=== PATIENT | female | born 1980 | race Two or more races ===

== ENCOUNTER 2020-04-15 10:54 | Emergency (ER) | payer MEDICAID ==
[~2020-04-15] VITALS: Ht 154.9 cm; Wt 86.2 kg
--- NOTE | 2020-04-15 11:14 | NUR ---
CAME FROM HOME C/O ABDOMINAL PAIN X 5 DAYS, "BURNING SENSATION" +NAUSEA, TO ER BED 1, HOOKED TO BP CUFF AND POX, CHANGED TO HOSP GOWN, WARM BLANKET PROVIDED, PATIENT AAO x 4, BREATHING EVEN AND UNLABORED, NOT IN RESPIRATORY DISTRESS. DR BATEMAN AT BEDSIDE FOR EVAL.
[2020-04-15 11:28] LABS: APPEARANCE,URINE Clear (CLEAR); BILIRUBIN,URINE Negative (NEGATIVE); BLOOD, URINE Moderate Ery/uL (NEGATIVE); COLOR,URINE Yellow (YELLOW); KETONES,URINE Negative (NEGATIVE); LEUKOCYTE ESTERASE ,URINE Trace (NEGATIVE); NITRITE, URINE Negative (NEGATIVE); PROTEIN,URINE Negative (NEGATIVE); UGLUCOSE Negative (NEGATIVE); UROBILINOGEN,URINE 0.2 EU/dL (0.2)
[2020-04-15] MEDS ORDERED: PANTOPRAZOLE 40 MG VIAL ONE (11:34)
[2020-04-15] MEDS ORDERED: ONDANSETRON HCL/PF 4 MG/2 ML VIAL ONE (11:34)
[2020-04-15 11:36] LABS: BACTERIA,URINE Few /HPF (None Seen)
[2020-04-15 11:37] LABS: BASOPHILS % (AUTO) 0.4 % (0.0-2.0); EOSINOPHILS % (AUTO) 0.3 % (0.0-6.0); HEMATOCRIT 40 % (33-45); LYMPHOCYTES % (AUTO) 27.3 % (20.0-44.0); MEAN CORPUSCULAR HGB CONC 33 g/dl (31.0-36.0); MEAN CORPUSCULAR VOLUME 82 fL (82-100); MONOCYTES # (AUTO) 0.5 /CMM (0.1-1.30); MONOCYTES % (AUTO) 4.6 % (2.0-12.0); NEUTROPHILS # (AUTO) 7.5 /CMM (1.8-8.9); NEUTROPHILS % (AUTO) 67.4 % (43.0-81.0); PLATELET COUNT (AUTO) 303 /CMM (150-450); RED BLOOD CELL COUNT(AUTO) 4.82 MIL/uL (4.0-5.2); WHITE BLOOD COUNT (AUTO) 11.1 K/uL (4.3-11.0)
[2020-04-15 11:45] LABS: CALCIUM, SERUM 9.5 mg/dL (8.5-10.1); CREATININE 0.8 mg/dL (0.6-1.3); POTASSIUM 3.6 mmol/L (3.5-5.1)
[2020-04-15 11:56] LABS: ALBUMIN 4.3 g/dL (3.4-5.0); BILIRUBIN,DIRECT 0.1 mg/dL (0.0-0.2); BILIRUBIN,TOTAL 0.6 mg/dL (0.2-1.0); TOTAL PROTEIN, SERUM 8.5 g/dL (6.4-8.2)
[2020-04-15] MEDS: ONDANSETRON HCL/PF 4 MG/2 ML VIAL IVP ONE (12:04)
[2020-04-15] MEDS: IV NS 0.9% 1,000 ML BAG IV ONE (12:04)
[2020-04-15] MEDS: PANTOPRAZOLE 40 MG VIAL IV ONE (12:04)
--- NOTE | 2020-04-15 13:04 | NUR ---
IV removed. Catheter intact and site benign. Pressure and 4x4 applied to site. No bleeding noted.Patient discharged to home in stable condition. Written and verbal after care instructions given. Patient verbalizes understanding of instruction.
[2020-04-15 13:06] VITALS: BP 142/79
== END 2020-04-15 13:06 | disposition home or self-care (01) ==
LOC: ER 10:58
DX: R10.13 Epigastric pain (principal); R19.7 Diarrhea, unspecified; E66.01 Morbid (severe) obesity due to excess calories; Z68.35 Body mass index [BMI] 35.0-35.9, adult; E78.00 Pure hypercholesterolemia, unspecified; Z90.49 Acquired absence of other specified parts of digestive tract; Z98.890 Other specified postprocedural states
CPT/HCPCS: 36415; 80048; 80076; 81001; 83690; 84703; 85025; 96361; 96374; 96375; 99284; C9113; J2405; J7030; 81000-TC